=== PATIENT | male | born 1975 | race Caucasian/White ===

== ENCOUNTER 2019-09-06 12:40 | Emergency (ER) | payer SELFPAY ==
--- NOTE | 2019-09-06 12:43 | ECG_ITS ---
Measurements Intervals [place] Rate: 61 P: 36 TN: 140 QRS: 43 QRSD: 96 T: 42 QT: 380 QTc: 385 SINUS RHYTHM WARNING: DATA QUALITY MAY AFFECT INTERPRETATION INTERPRETATION BASED ON A DEFAULT AGE OF 40 YEARS Compared to ECG 10/26/2016 00:21:04 Sinus bradycardia no longer present Electronically Signed On 09-06-2019 17:52:12 PERFECT BIND MACHINE OPERATOR by Elvis Donald M.D. [id number] f
--- NOTE | 2019-09-06 12:43 | XRR_ITS ---
PROCEDURE INFORMATION: Exam: XR Chest, 1 View Exam date and time: 09/06/2019 12:57 PM Age: 44 years old Clinical indication: Chest pain; Type not specified; Additional info: Cp TECHNIQUE: Imaging protocol: XR of the chest Views: 1 view. COMPARISON: CR Chest 2 views* [id number] 10/25/2016 11:47 PM FINDINGS: Lungs: Unremarkable. No consolidation. Pleural space: Unremarkable. No pleural effusion. No pneumothorax. Heart/Mediastinum: Unremarkable. No cardiomegaly. Bones/joints: Unremarkable. Soft tissues: Surgical martinez overlie the right hemidiaphragm, please correlate with surgical history. XR/XR chest 1V portable [id number] IMPRESSION: No acute findings are identified. Please see above report for incidental findings.
[2019-09-06 13:20] LABS: Basophils % 0.6 %; Eosinophils # 0.2 10^3/uL (0.0-0.8); Hematocrit 47.4 % (42.0-52.0); Hemoglobin 15.7 g/dL (11.7-16.6); Lymphocytes # 1.7 10^3/uL (0.8-4.8); Lymphocytes % 25.2 %; Mean Corpuscular HGB Conc 33.1 g/dL (30.0-36.0); Mean Corpuscular Hemoglobin 30.6 pg (28.0-34.0); Mean Corpuscular Volume 92.4 fL (80-94); Mean Platelet Volume 11.4 fL (7.4-10.4); Monocytes # 0.4 10^3/uL (0.2-0.9); Monocytes % 6.3 %; Neutrophils # 4.3 10^3/uL (1.8-7.7); Neutrophils % 64.6 %; Nucleated Red Blood Cells % 0 %; Platelet Count 217 10^3/cmm (130-400); Red Blood Count 5.13 10^6/uL (4.1-5.3); Red Cell Distribution Width 13.1 % (12.1-15.1); White Blood Count 6.6 10^3/uL (4.0-10.0)
[2019-09-06 13:42] LABS: Alanine Aminotransferase 19 U/L (0-41); Albumin Level 4.8 g/dL (3.5-5.2); Alkaline Phosphatase 85 IU/L (40-130); Anion Gap 14.9 (5-19); Aspartate Amino Transferase 17 U/L (0-40); Blood Urea Nitrogen 10 mg/dL (6-20); Carbon Dioxide 27 mmol/L (22-29); Chloride 102 mmol/L (98-107); Globulin 3.3 g/dL (1.3-4.6); Glomerular Filtration Rate 65.5 mL/min (90-130); Glucose 112 mg/dL (74-109); Potassium 3.9 mmol/L (3.5-5.1); Sodium 140 mmol/L (136-145); Total Bilirubin 0.6 mg/dL (0.15-1.2); Total Protein 8.1 g/dL (6.6-8.7)
[2019-09-06 13:52] VITALS: BP 130/84; PULSE 63; RESP 20; TEMP 37.1; O2SAT 99
[2019-09-06 14:07] LABS: Troponin(5th) Baseline < 6 ng/mL (0-15)
--- NOTE | 2019-09-06 14:43 | ECG_ITS ---
Measurements Intervals [place] Rate: 54 P: 7 KS: 130 QRS: 7 QRSD: 98 T: -9 QT: 397 QTc: 378 SINUS BRADYCARDIA VOLTAGE CRITERIA FOR LVH [MEETS CRITERIA IN ONE OF: R(aVL), S(V1), R(V5), R (V5/V6)+S(V1)] Compared to ECG 10/26/2016 00:21:04 Left ventricular hypertrophy now present Electronically Signed On 09-06-2019 17:53:20 BLENDER MACHINE OPERATOR by Elvis Donald M.D. [id number]
[2019-09-06 15:45] LABS: Troponin 5 2HR Delta 0.00001 ABS# (0-10)
--- NOTE | 2019-09-06 16:19 | ED_ITS ---
Entered by Marilee Sneed, acting as scribe for Brittany Garcia MD Sep 06, 2019 12:40 HPI - Chest Pain General: Chief Complaint: Chest Pain Stated Complaint: Chest Pains Time Seen by Provider: 09/06/19 16:19 Source: patient and RN notes reviewed Mode of arrival: ambulatory Limitations: no limitations History of Present Illness: HPI narrative: 44 yo male presents to ED with complaints of chest pain for 3 days. The patient states he has R & L sided chest pain and tightness in central chest. He said he has more pain with inspiration. He said he also has had pressure in his upper thoracic and lower cervical spine. He said this has been going on for quite a while but it has been happening more often. The following symptoms have been happening for over a year and have been intermittent but have been happening more frequently as well: dizzy, tongue will get numb, rash under chin and neck like his skin is crawling, tingly sensation in his R forearm and hand, tingly sensation in his L lower leg to his foot. He said he also has a bad tooth in his R upper jaw. complaint: chest pain and chest discomfort Onset (ago): day(s) (3) Timing of current episode: episodic Prior episodes: No Onset: during rest Pain location: substernal, left chest and right chest Pain radiation: none Severity: moderate Quality: tightness, aching and heaviness Relieving factors: nothing Exacerbating factors: nothing Associated symptoms: Reports no associated symptoms; Deny abdominal pain, dyspnea, fever(s), nausea or vomiting Treatment prior to arrival: none Risk Factors: Coronary artery disease risk factors: none Thoracic aortic dissection risk factors: none Review of Systems Const: Denies: fever, chills, body aches or change in appetite Eyes: Denies: blurry vision or eye discomfort ENMT: Denies: throat pain Resp: Denies: shortness of breath GI: Denies: abdominal pain, nausea, vomiting or diarrhea : Denies: painful urination Neuro: Denies: headache Psych: Denies: depression Sheldon/Lymph: Denies: easy bruising All/Imm: Denies: hives PFSH ED PFSH: Statuses (acute, chronic, etc) shown below reflect problem list status as previously entered and may not be historically accurate Social History (Updated 09/06/19 @ 11:45 by Cande Buitrago LPN) Smoking and tobacco status: former smoker Alcohol intake: current Physical Exam Const: COMMON NORMALS: no apparent distress, oriented x3 and healthy appearing HENMT: COMMON NORMALS: normocephalic and head/scalp atraumatic HEAD & SCALP: normocephalic and atraumatic Eye: COMMON NORMALS: PERRL and EOMs intact bilaterally PUPIL: Yes PERRL Neck/C-Spine: COMMON NORMALS: full ROM and supple Chest: COMMONS NORMALS: inspection of chest normal and palpation of chest normal Resp: COMMON NORMALS: normal respiratory effort, no retractions, no use of accessory muscles and clear to auscultation bilaterally AUSCULTATION: clear to auscultation bilaterally Cardio: COMMON NORMALS: regular rate, regular rhythm and no murmurs RATE: regular rate RHYTHM: regular rhythm GI: COMMON NORMALS: normal to inspection, nondistended, normoactive bowel sounds, soft to palpation, non-tender and no masses PALPATION: Yes soft Extremity: COMMON NORMALS: normal to inspection and full ROM Neuro: COMMON NORMALS: oriented x3, moves all extremities and no focal motor deficits Psych: COMMON NORMALS: mental status grossly normal, thought process normal and cooperative THOUGHT PROCESS: normal thought process Skin: COMMON NORMALS: no rashes or lesions noted and no wounds GENERAL SKIN EXAM: no rashes or lesions noted Course Vital Signs: Vital signs: Vital Signs Temperature 98.7 F 09/06/19 13:52 Pulse Rate 66 09/06/19 17:25 Respiratory Rate 16 09/06/19 17:25 Blood Pressure 144/78 09/06/19 17:25 Pulse Oximetry 99 09/06/19 17:25 MDM - Chest Pain MDM Narrative: Medical decision making narrative: Patient presents here with chest pain along with some paresthesias likely anxiety as well. He is well- appearing here initial and repeat troponin normal and EKGs are normal. Patient CT head is normal as well. He feels improved here and is stable for discharge. He is to follow-up with PCP and will have case management set this up. He is to return if worsening. Lab Data: Labs: Lab Results 09/06/19 09/06/19 09/06/19 Range/Units 13:13 13:13 13:13 WBC 6.6 (4.0-10.0) 10^3/ uL RBC 5.13 (4.1-5.3) 10^6/u L Hgb 15.7 (11.7-16.6) g/dL Hct 47.4 (42.0-52.0) % MCV 92.4 (80-94) fL MCH 30.6 (28.0-34.0) pg MCHC 33.1 (30.0-36.0) g/dL RDW 13.1 (12.1-15.1) % Plt Count 217 (130-400) 10^3/c mm MPV 11.4 H (7.4-10.4) fL Neut % (Auto) 64.6 % Lymph % (Auto) 25.2 % Izard % (Auto) 6.3 % Eos % (Auto) 3.0 % Baso % (Auto) 0.6 % Neut # (Auto) 4.3 (1.8-7.7) 10^3/u L Lymph # (Auto) 1.7 (0.8-4.8) 10^3/u L Izard # (Auto) 0.4 (0.2-0.9) 10^3/u L Eos # (Auto) 0.2 (0.0-0.8) 10^3/u L Baso # (Auto) 0.0 (0.0-0.1) 10^3/u L Nucleated RBC % (a uto) 0 % Nucleated RBCs # 0.0 /100WBC Sodium 140 (136-145) mmol/L Potassium 3.9 (3.5-5.1) mmol/L Chloride 102 (98-107) mmol/L Carbon Dioxide 27 (22-29) mmol/L Anion Gap 14.9 (5-19) BUN 10 (6-20) mg/dL Creatinine 1.2 (0.7-1.2) mg/dL GFR Calculation 65.5 L (90-130) mL/min Glucose 112 H (74-109) mg/dL Calcium 10.0 (8.5-10.5) mg/dL Total Bilirubin 0.6 (0.15-1.2) mg/dL AST 17 (0-40) U/L ALT 19 (0-41) U/L Alkaline Phosphata se 85 (40-130) IU/L Troponin T Baselin e < 6 (0-15) ng/mL Troponin T 120 Min [place] (0-15) ng/mL Delta Troponin T (0-10) ABS# Total Protein 8.1 (6.6-8.7) g/dL Albumin 4.8 (3.5-5.2) g/dL Globulin 3.3 (1.3-4.6) g/dL 09/06/19 Range/Units 15:12 WBC (4.0-10.0) 10^3/ uL RBC (4.1-5.3) 10^6/u L Hgb (11.7-16.6) g/dL Hct (42.0-52.0) % MCV (80-94) fL MCH (28.0-34.0) pg MCHC (30.0-36.0) g/dL RDW (12.1-15.1) % Plt Count (130-400) 10^3/c mm MPV (7.4-10.4) fL Neut % (Auto) % Lymph % (Auto) % [place] % (Auto) % Eos % (Auto) % Baso % (Auto) % Neut # (Auto) (1.8-7.7) 10^3/u L Lymph # (Auto) (0.8-4.8) 10^3/u L [place] # (Auto) (0.2-0.9) 10^3/u L Eos # (Auto) (0.0-0.8) 10^3/u L Baso # (Auto) (0.0-0.1) 10^3/u L Nucleated RBC % (a uto) % Nucleated RBCs # /100WBC Sodium (136-145) mmol/L Potassium (3.5-5.1) mmol/L Chloride (98-107) mmol/L Carbon Dioxide (22-29) mmol/L Anion Gap (5-19) BUN (6-20) mg/dL Creatinine (0.7-1.2) mg/dL GFR Calculation (90-130) mL/min Glucose (74-109) mg/dL Calcium (8.5-10.5) mg/dL Total Bilirubin (0.15-1.2) mg/dL AST (0-40) U/L ALT (0-41) U/L Alkaline Phosphata se (40-130) IU/L Troponin T Baselin e (0-15) ng/mL Troponin T 120 Min [place] 6.00 (0-15) ng/mL Delta Troponin T 0.84563 (0-10) ABS# Total Protein (6.6-8.7) g/dL Albumin (3.5-5.2) g/dL Globulin (1.3-4.6) g/dL Imaging Data^: CT Head: Radiologist's impression: [address] [place] [address] XRay Report Signed Patient: Alis Angel Unit #: [id number] : 12/12/1971 Acct#:[id number] Age/Sex: 47 / F ADM Date: 09/06/19 Loc: ER Room/Bed: Attending Dr: Ordering Provider/Ordering MD: Brittany Garcia MD Date of Service: 09/06/19 Procedure(s): XR chest 1V portable [id number] Accession Number(s): [id number] Report Number: [id number] PROCEDURE INFORMATION: Exam: XR Chest, 1 View Exam date and time: 09/06/2019 2:01 PM Age: 47 years old Clinical indication: Type not specified; Patient HX: Chest pain and wheezing for 2 weeks; Additional info: Chest pain TECHNIQUE: Imaging protocol: XR of the chest Views: Frontal portable upright view of the chest. COMPARISON: No relevant prior studies available. FINDINGS: Tubes, catheters and devices: EKG leads are present overlying the chest. Lungs: Mild medial RIGHT basilar pulmonary subsegmental atelectasis. The lungs are otherwise peripherally clear bilaterally. The pulmonary vasculature is normal. Pleural space: No pleural effusion. No pneumothorax. Heart/Mediastinum: The heart is normal in size and contour. Bones/joints: No acute abnormality identified. XR/XR chest 1V portable [id number] IMPRESSION: Mild medial RIGHT basilar pulmonary subsegmental atelectasis. Dictated By: Zafar Au MD Signed By: Zafar Au MD Signed Date/Time: 09/06/19 1444 DD/ CXR: Radiologist's impression: [place] [address] XRay Report Signed Patient: Mor Manning Unit #: [id number] : 1975 Age/Sex: 44 / M ADM Date: 09/06/19 Loc: ER Room/Bed: Attending Dr: Ordering Provider/Ordering MD: Brittany Garcia MD Date of Service: 09/06/19 Procedure(s): XR chest 1V portable [id number] Accession Number(s): [id number] Report Number: [id number] PROCEDURE INFORMATION: Exam: XR Chest, 1 View Exam date and time: 09/06/2019 12:57 PM Age: 44 years old Clinical indication: Chest pain; Type not specified; Additional info: Cp TECHNIQUE: Imaging protocol: XR of the chest Views: 1 view. COMPARISON: CR Chest 2 views* [id number] 10/25/2016 11:47 PM FINDINGS: Lungs: Unremarkable. No consolidation. Pleural space: Unremarkable. No pleural effusion. No pneumothorax. Heart/Mediastinum: Unremarkable. No cardiomegaly. Bones/joints: Unremarkable. Soft tissues: Surgical martinez overlie the right hemidiaphragm, please correlate with surgical history. XR/XR chest 1V portable [id number] IMPRESSION: No acute findings are identified. Please see above report for incidental findings. Dictated By: Heriberto Venegas Signed By: Heriberto Venegas Signed Date/Time: 09/06/19 1335 DD/ EKG Data^: EKG 1: Attestation: I personally reviewed and interpreted this EKG as follows: EKG interpretation date: 09/06/19 EKG interpretation time: 13:59 Interpretation: nsr hr [address] or t wave abnormalities qrs 96 [id number] Discharge Plan Discharge Patient Disposition: Home, Self-Care Clinical Impression: Atypical chest pain Condition: Stable Prescriptions: No Action Tylenol 325 mg Tablet 650 mg PO DAILY PRN (Reason: Pain) RF: 0 Cipro 250 mg Tablet 125 mg PO BID RF: 0 Silver Biotics Immune Support 1 spray PO DAILY RF: 0 cranberry 2 tab PO DAILY RF: 0 Discharge Orders: Discharge Order (Routine); Ordered 09/06/19 Ordered By: Korby Jose Discharge Diet: Advance as tolerated Discharge Activity: Resume usual activity Patient Instructions: Chest Pain (ED) Discharge Date/Time: 09/06/19 17:30 Coding Level of Care Code ED Copy Holder for Chg Fwd Exam Problem Focused The documentation recorded by the Nedra shepherd Valerie R, accurately reflects the service I personally performed and the decisions made by Jose muse Korby, MD Sep 06, 2019 12:40
--- NOTE | 2019-09-06 16:28 | CTR_ITS ---
PROCEDURE INFORMATION: Exam: CT Head Without Contrast Exam date and time: 09/06/2019 4:40 PM Age: 44 years old Clinical indication: Altered mental status/memory loss; Confusion or disorientation TECHNIQUE: Imaging protocol: Computed tomography of the head without contrast. Total DLP: 802.64 mGy-cm Radiation optimization: All CT scans at this facility use at least one of these dose optimization techniques: automated exposure control; mA and/or kV adjustment per patient size (includes targeted exams where dose is matched to clinical indication); or iterative reconstruction. COMPARISON: No relevant prior studies available. FINDINGS: Brain: Normal. No hemorrhage. Unremarkable white matter. No mass effect. Ventricles: Normal. No ventriculomegaly. Bones/joints: Unremarkable. No acute fracture. Sinuses: Visualized sinuses are unremarkable. No fluid levels. Mastoid air cells: Visualized mastoid air cells are well aerated. Soft tissues: Unremarkable. CT/CT head wo con* [id number] IMPRESSION: No acute intracranial abnormality. Radiation Dose CTDIVOL = (mGy): DLP = 802.64 (mGy-cm)
[2019-09-06 16:32] VITALS: BP 132/95; PULSE 59; RESP 17; O2SAT 99
--- NOTE | 2019-09-06 16:35 | PC.NURSE ---
Patient reports that he has had chest pain since about 2017. Patient states that he has a lot of chest pain since . Patient reports that he also feels pressure in his back. Patient states that he gets weird feelings in his feet like no blood flow.
[2019-09-06] MEDS: dexamethasone 10 mg/mL INJ IM (17:00)
[2019-09-06] MEDS: ketorolac 60 mg/2 mL INJ IM (17:00)
[2019-09-06 17:25] VITALS: BP 144/78; PULSE 66; RESP 16; O2SAT 99
--- NOTE | 2019-09-08 10:22 | DCPLANNER ---
natural resources manager [place] [facility] spoke [place] Diane, a follow up appointment was scheduled for Saturday, September 21, 2019 at 2:[address] Jimenez. natural resources manager called patient and informed patient of the scheduled appointment. natural resources manager spoke with patient and gave patient the appointment information. natural resources manager also mailed patient both of the financial reserve clerk applications to fill out and turn in. Patient stated that he would attend the appointment.
--- NOTE | 2019-10-01 15:34 | DCPLANNER ---
Patient did attend appointment scheduled for 09.21.19 with [facility].
== END 2019-09-06 17:30 | disposition home or self-care (01) ==
PROVIDERS: Emergency Provider Emergency Medicine
DX: R07.89 Other chest pain (principal); Z87.891 Personal history of nicotine dependence
CPT/HCPCS: 36415; 70450; 71045; 80053; 84484; 85025; 93005; 96374; 99281; J1100; J1885